=== PATIENT | female | born 1995 | race Caucasian/White ===

== ENCOUNTER → 2017-05-31 | Outpatient (CLI) | payer OTHER ==
[~2017-05-31] MED LIST: METR1TAB76 PO; ONDA4TAB7 SL; PREN1CAP20
== END ==
LOC: HPND 08:37
PROVIDERS: ATTEND Obstetrics & Gynecology
DX: O26.891 Other specified pregnancy related conditions, first trimester (principal); R19.04 Left lower quadrant abdominal swelling, mass and lump; O26.841 Uterine size-date discrepancy, first trimester
CPT/HCPCS: 76801

== ENCOUNTER → 2017-07-12 | Outpatient (CLI) | payer OTHER | LOC: HPND 14:45 | PROVIDERS: ATTEND Obstetrics & Gynecology | DX: Z36.2 Encounter for other antenatal screening follow-up (principal); Z3A.00 Weeks of gestation of pregnancy not specified | CPT/HCPCS: 76805 ==